=== PATIENT | female | born 1970 | race Two or more races ===

== ENCOUNTER 2023-09-16 20:07 | Emergency (ER) | payer BC ==
[~2023-09-16] VITALS: Ht 157.5 cm; Wt 90.7 kg
[2023-09-16] MEDS ORDERED: COZAAR50 MG PO (20:20)
[2023-09-16] MEDS ORDERED: ATORVASTATIN CA10 MG PO (20:20)
[2023-09-16] MEDS ORDERED: NEOMYCIN/POLYMYXIN B/HYDROCORT 20 DR/ML BOTTLE OT STA (21:10)
== END 2023-09-16 21:51 | disposition home or self-care (01) ==
LOC: ER 20:08
DX: H92.02 Otalgia, left ear (principal)